=== PATIENT | male | born 1990 | race Caucasian/White ===

== ENCOUNTER 2021-05-15 12:29 | Observation (INO) | payer OTHER ==
[~2021-05-15] VITALS: Ht 177.8 cm; Wt 77.6 kg
[2021-05-15 16:37] LABS: HEMOGLOBIN 17.3 gm/dl (14.0-17.5); RED BLOOD COUNT 5.23 M/UL (4.20-5.50)
[2021-05-15 16:58] LABS: BUN/CREATININE RATIO 17 (0-10)
[2021-05-16 03:12] LABS: HEMOGLOBIN 15.6 gm/dl (14.0-17.5); RED BLOOD COUNT 4.79 M/UL (4.20-5.50); WHITE BLOOD COUNT 7.6 K/UL (4.5-11.0)
[2021-05-16 03:27] LABS: BUN/CREATININE RATIO 21 (0-10)
--- NOTE | 2021-05-17 18:52 | NUR ---
PT REQUESTING TO BE DC'D. NOTIFIED. ORTHO WANTS TO KEEP HIM OVERNIGHT TO GET MRI RESULTS AND DECIDE A COURSE OF ACTION. EXPLAINED THIS TO PT. PT LATER CAME OUT OF ROOM, CURSING AND SLAMMING DOOR. STATES HE IS NOT STAYING TONIGHT AND WANTS TO LEAVE. NOTIFIED AGAIN AND STATED PT COULD LEAVE AMA IF HE INSISTS ON LEAVING. IV REMOVED AND AMA PAPERS SIGNED.
== END 2021-05-17 19:30 | disposition left against medical advice (07) ==
LOC: ER1 12:29 → CDU 15:12 → M/S 17:46
PROVIDERS: Physician Assistant; ADMIT Internal Medicine
DX: L03.113 Cellulitis of right upper limb (principal); M79.641 Pain in right hand; F17.290 Nicotine dependence, other tobacco product, uncomplicated; F12.10 Cannabis abuse, uncomplicated; F15.10 Other stimulant abuse, uncomplicated; Z88.0 Allergy status to penicillin; Z20.822 Contact with and (suspected) exposure to COVID-19
CPT/HCPCS: 36415; 73130; 73220; 80048; 83605; 85025; 85652; 86140; 87040; 96374; 96375; 96376; 99285; A9577; G0378; J1885; U0002